=== PATIENT | female | born 1965 | race African-American/Black ===

== ENCOUNTER 2016-09-19 05:40 | Day surgery (SDC) | payer OTHER ==
--- NOTE | 2016-09-16 03:31 | PREOPHP ---
DATE OF ADMISSION: 09/19/2016 HISTORY OF PRESENT ILLNESS: This is a 51-year-old female, 1, para 1 with a history of havin g abnormal Pap smear, endometrial hyperplasia, old fibroid uterus, morbid obesity, and previous stro ke. This patient had a stroke in 2010. She had lung surgery, hypertension, pneumonia, and thoracot pam. She has been also diabetic. She has been on atorvastatin, Claritin, gabapentin, metformin, Pr otonix, lisinopril, and naproxen. This patient needed a cervical conization due to a HILARIA 2 on the b iopsy of the cervix. Since she needs D and C and hysteroscopy due to endometrial hyperplasia to rul e out malignancy, the patient was offered to have a hysteroscopy D and C and cervical conization all at the same time. The patient also is a chronic smoker. FAMILY HISTORY: Noncontributory. PHYSICAL EXAMINATION: VITAL SIGNS: The patient is 5 feet 7 inches, she weighs 293 pounds. Her blood pressure is 120/70, pulse is 80, respirations 16. Her last period was in 2013. HEAD AND NECK: Normal. CHEST: Clear. HEART: Normal sinus rhythm. LUNGS: Clear. ABDOMEN: Soft, nontender, no masses. PELVIC: The external genitalia is normal. The vagina is atrophic. Uterus with fibroids 8.7 cm by ultrasound. Endometrium is 9 mm, thick for a postmenopausal woman. The adnexa were not palpable. EXTREMITIES: Normal. DIAGNOSES: 1. Endometrial hyperplasia. 2. Old fibroid uterus. 3. Morbid obesity. 4. Previous stroke. 5. Previous lung surgery. 6. Chronic smoker. 7. Cervical intraepithelial neoplasia 2 of the cervix. 8. Hypertension. PLAN: She is undergoing a fractional D and C hysteroscopy and cervical conization of the cervix for further treatment and diagnosis. She has been advised of the possible risks and possible complicat ions of this procedure with her alternatives and options. Written information was provided, and she had no more questions and agreed to go ahead with the procedure with full understanding. Dictated By: SAMANTHA DIAZ/OZIEL Conf#: [id number] DID#: [id number]
[2016-09-18 09:49] VITALS: BMI 44.2
[~2016-09-19] VITALS: Ht 172.7 cm; Wt 132.0 kg
[2016-09-19] VITALS (19 sets, daily range): BP systolic 90–134; BP diastolic 47–73; PULSE 56–100; RESP 10–32; Ht 172.7 cm; Wt 132.0 kg
[2016-09-19] MEDS ORDERED: PANT40TA4 PO (07:39)
[2016-09-19] MEDS ORDERED: LORA10TA3 PO (07:39)
[2016-09-19] MEDS ORDERED: GABA100C14 PO (07:39)
[2016-09-19] MEDS ORDERED: ATOR20TA65 PO (07:39)
[2016-09-19] MEDS ORDERED: METF-385 PO (07:39)
[2016-09-19] MEDS ORDERED: LISI20TA11 PO (07:39)
[2016-09-19] MEDS ORDERED: ASPI-535 PO (07:41)
[2016-09-19] MEDS ORDERED: NOVMIX SC (07:41)
[2016-09-19] MEDS ORDERED: LANT3I SC (07:41)
--- NOTE | 2016-09-19 08:24 | RADRPT ---
PROCEDURE: XR Chest 1 View. CLINICAL INDICATION: Abnormal breath sounds, preop. TECHNIQUE: AP view of the chest were obtained. COMPARISON: None. FINDINGS: The cardiomediastinal silhouette is within normal limits. No consolidations are identified. No pneu mothorax is seen. Osseous structures are intact. IMPRESSION: No active disease. RPTAT: AA .Wilman Cervantes MD, Date Time Electronically viewed and signed by .Wilman Cervantes MD, on 09/19/2016 08:23 .P/
[2016-09-19] MEDS ORDERED: METOCLOPRAMIDE 10 MG INJ IV PRN (09:00)
[2016-09-19] MEDS ORDERED: MIDAZOLAM 1 MG/ML 2 ML INJ ONE (09:00)
[2016-09-19] MEDS ORDERED: LIDOCAINE 2% (SDV) 5 ML INJ ONE (09:00)
[2016-09-19] MEDS ORDERED: FENTAnyl 50 MCG/ML VIAL IV PRN (09:00)
[2016-09-19] MEDS ORDERED: PROPOFOL 20 ML ONE (09:00)
[2016-09-19] MEDS ORDERED: MEPERIDINE 25 MG INJ IV PRN (09:00)
[2016-09-19] MEDS ORDERED: HYDROmorphONE (0.2 MG/ML) 10ML SYG IV PRN ×2 (09:00)
[2016-09-19] MEDS ORDERED: INSULIN ASPART [NOVOLOG] 3 ML PEN SC ONE (09:00)
[2016-09-19] MEDS ORDERED: DIPHENHYDRAMINE 50 MG INJ IV PRN (09:00)
[2016-09-19] MEDS ORDERED: ONDANSETRON 4 MG INJ IV PRN (09:00)
[2016-09-19] MEDS ORDERED: FENTAnyl 50 MCG/ML VIAL ONE (09:00)
[2016-09-19] MEDS ORDERED: OXYCODONE/ACETAMINOPHEN (5/325) TAB PO PRN ×2 (09:00)
[2016-09-19] MEDS ORDERED: STRONG IODINE 14 ML SOLUTION TOP ONE (09:50)
[2016-09-19] MEDS ORDERED: ONDANSETRON 4 MG INJ ONE (10:11)
[2016-09-19] MEDS ORDERED: METOCLOPRAMIDE 10 MG INJ ONE (10:11)
[2016-09-19] MEDS ORDERED: ACETAMINOPHEN 1000MG/100ML IV 100 ML ONE (10:26)
[2016-09-19] MEDS ORDERED: KETOROLAC 30 MG INJ ONE (10:44)
--- NOTE | 2016-09-19 10:59 | OPPN ---
Date/Time of Note Date/Time of Note DATE: 09/19/16 TIME: 10:54 Operative/Procedure Note FRACTIONAL D&C HYSTEROSCOPY EXCISION OF ENDOMETRIAL POLYP CONIZATION OF CERVIX Pre-Operative Diagnosis ENDOMETRIAL HYPERPLASIA MORBID OBESITY DIABETES HILARIA 2 OF CERVIX BY HISTORY ABNORMAL PAP SMEAR Post-Operative Diagnosis SAME Surgeon: SAMANTHA PAZ MD Anesthesiologist: SARAH CHOU MD Estimated blood loss: none Specimens ENDOMETRIAL CONTENTS CERVICAL TISSUE Complications: None Anesthesia type: general SAMANTHA PAZ MD Sep 19, 2016 10:59
[2016-09-19] MEDS ORDERED: KETOROLAC 30 MG INJ IV PRN (11:00)
--- NOTE | 2016-09-19 11:02 | PD.PPDC ---
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
--- NOTE | 2016-09-19 11:08 | OPR ---
DATE OF OPERATION: 09/19/2016 PREOPERATIVE DIAGNOSES: Endometrial hyperplasia of fibroid uterus, morbid obesity, previous lung plunkett rgery, chronic smoker and HILARIA 2 of the cervix, hypertension, abnormal Pap smear. POSTOPERATIVE DIAGNOSIS: Endometrial hyperplasia, fibroid uterus, morbid obesity, previous lung oma yanely, chronic smoker and HILARIA 2 of the cervix, hypertension, abnormal Pap smear. OPERATION PERFORMED: Fractional D and C and hysteroscopy and cervical conization of the cervix. Pr ocedure under general anesthesia with Dr. Packer. SURGEON: Dr. Varela DESCRIPTION OF PROCEDURE: Patient was given general anesthesia, placed in the lithotomy position. The perineal and vaginal area were prepped and draped. Examination under anesthesia revealed that t he uterus was normal size. The vagina was atrophic. The cervix was nonprolapsed, a small cervix a nd adnexa were nonpalpable. The vaginal speculum was applied. The endocervical curettage was done. The uterus was sounded to a depth of 9 cm and dilated and the hysteroscope was placed inside and t he media was injected and a polyp was observed in the anterior wall of the uterus that was removed w ith the polyp forceps in pieces. The endometrial curettage was done and all this was sent for patho logy report. Now, at this time, the conization of the cervix was done with a small curet of ectocer vix and endocervix with no actual bleeding. The procedure was finished by removing all the instrume nts. The patient tolerated the procedure well and left the OR awake and stable. Sponge counts, ins trument counts were correct and intravenous antibiotics were given for prophylaxis. Dictated By: SAMANTHA DIAZ/OZIEL Conf#: [id number] DID#: [id number]
--- NOTE | 2016-09-19 11:40 | RADRPT ---
Vent Rate: 85 bpm RR Interval: 0 msec VT Interval: 140 msec QRS Duration: 84 msec QT Interval: 376 msec QTC Interval: 447 msec P-R-T [place]: 64 - 13 - 57 degrees Normal sinus rhythm with sinus arrhythmia Normal ECG Electronically Signed By: Yevgeniy Ochoa [id number]
== END 2016-09-19 13:10 | disposition home or self-care (01) ==
LOC: SDS 05:40
PROVIDERS: ATTEND Obstetrics & Gynecology
DX: N85.00 Endometrial hyperplasia, unspecified (principal); D25.9 Leiomyoma of uterus, unspecified; I10 Essential (primary) hypertension; E66.01 Morbid (severe) obesity due to excess calories; Z68.41 Body mass index [BMI] 40.0-44.9, adult; E11.8 Type 2 diabetes mellitus with unspecified complications; Z79.4 Long term (current) use of insulin
CPT/HCPCS: 58558; 71010; 82962; 88305; 93005; J0131; J1815; J1885; J2250; J2405; J2765; J3010; Z7512; Z7610

== ENCOUNTER 2017-01-02 05:34 | Inpatient (IN) | payer OTHER ==
[2017-01-01 09:43] VITALS: BMI 45.2
[2017-01-02] VITALS (55 sets, daily range): BP systolic 98–200; BP diastolic 46–112; PULSE 94–123; RESP 14–32; Ht 167.6 cm; Wt 130.6 kg
[~2017-01-02] VITALS: Ht 167.6 cm; Wt 130.6 kg
[~2017-01-02 05:34] MED LIST: ASPI-535 PO; ATOR20TA65 PO; CEFAZOLIN 2 GM/50 ML (PMX) 50 ML IVPB ONE; D5-NS + KCL 20 MEQ 1,000 ML IV SCH; GABA100C14 PO; LANT3I SC; LISI20TA11 PO; LORA10TA3 PO; METF850T PO; Metronidazole 500 MG in NS 100 ML IVPB ONE; NOVMIX SC; PANT40TA4 PO
[2017-01-02] MEDS ORDERED: INSULIN LISPRO 100 UNIT/ML VIAL SC ONE (06:12)
[2017-01-02] MEDS ORDERED: THROMBIN 5000 UNIT VIAL ONE (06:55)
[2017-01-02] MEDS ORDERED: GELATIN SIZE 100 SPONGE ONE (06:55)
[2017-01-02] MEDS ORDERED: VASOPRESSIN 20 UNITS INJ ONE (06:56)
[2017-01-02] MEDS ORDERED: METHYLENE BLUE 1% 10 ML INJ ONE (06:56)
[2017-01-02] MEDS ORDERED: CEFAZOLIN 1 GM INJ ONE ×2 (07:00→12:52)
[2017-01-02] MEDS ORDERED: SUCCINYLCHOLINE CHLORIDE 100 MG/5 ML SYG IV ONE (07:00)
[2017-01-02] MEDS ORDERED: ACETAMINOPHEN 1000 MG/100 ML IVPB ONE (07:00)
[2017-01-02] MEDS ORDERED: ROCURONIUM 50 MG INJ ONE ×3 (07:19→12:19)
[2017-01-02] MEDS ORDERED: PROPOFOL 100 ML ONE (07:19)
[2017-01-02] MEDS ORDERED: MIDAZOLAM 1 MG/ML 2 ML INJ ONE (07:20)
[2017-01-02] MEDS ORDERED: FENTAnyl 50 MCG/ML VIAL ONE (07:20)
[2017-01-02] MEDS ORDERED: morphine SULFATE/PF (10 MG/10 ML) INJ ONE (07:20)
--- NOTE | 2017-01-02 08:31 | HPN ---
Date/Time of Note Date/Time of Note DATE: 01/02/17 TIME: 08:31 Interval H&P Admission Note Pt. seen H&P reviewed: No system changes RACHELL CHAUHAN MD Jan 02, 2017 08:31
--- NOTE | 2017-01-02 08:41 | HP ---
Date/Time of Note Date/Time of Note DATE: 01/02/17 TIME: 08:34 Assessment/Plan VTE Prophylaxis VTE Prophylaxis Intervention: SCD's Lines/Catheters IV [facility] Saline Lock HPI/ROS Admit Date/Time Admit Date/Time Jan 02, 2017 at 05:34 Hx of Present Illness Emory Hyde M.D. [facility] History and Physical Examination Renée Moore January 01, 2017 Age:51 :1965 Physicians: Gum Rolling Machine Tender:Dr. Varela Hvac Mechanic: History of the Present Illness: This is a 51 year old female with abnormal and Pap Smear and HSIL found on Endocervix Cone BIopsy with Gland Duct Involement with equivalent finding on ECC and EMB. Past Medical History: Surgical: CS, LEEP Medical: DM, HTN Medications: 11/08/16 atorvastatin 20 mg tablet 1 tablet by mouth DAILY 11/08/16 gabapentin 100 mg capsule 1 capsule by mouth TID 11/08/16 lisinopril 20 mg tablet 1 tablet by mouth DAILY 11/08/16 loratadine 10 mg tablet 1 tablet by mouth DAILY 11/08/16 metformin 850 mg tablet 1 tablet by mouth TID 11/08/16 Novolog Mix 70-30 FlexPen 100 unit/mL subcutaneous pen 1 unit inject below the skin DAILY 11/08/16 pantoprazole 40 mg tablet,delayed release 1 tablet by mouth DAILY Flu yes, -2015, Pneumococcal yes, 2015 Allergies: No active allergies recorded Family History: Noncontributory Social History: Noncontributory Colonoscopy: never Review of Systems: Negative except for above noted Physical Examination Vitals (11/08/2016): Weight 291, Height 66.5, BP 140/80, BMI 47.0. General: Alert. HEENT: Pupils are equal, round, reactive to light and accommodation. Neck: Supple with no masses of lymphadenopathy. Breast: Deferred due to recent examination and responsibility of primary care physician. Chest: Clear to auscultation and percussion with no rales, ronchi, or wheeze. Heart: Normal rhythm with no murmur. Abdomen: no masses nor organomeglay, quite obese Pelvis: Cervix somewhat flush with vagina, no gross mass and uterus enlarged and globular, no parametrial involvement or masses Rectal: confirmatory with pelvic exam. Neurological: Grossly intact Assessment: HILARIA III with + margins r/o invasion Plan: Laparoscopic type 2 hyst BSO sentinel LND. All risks and benefits of this procedure have been discussed in detail with the patient, as well as alternative treatment strategies and their implications. The patient is aware that there is some possibility of a blood transfusion and its associated risks and benefits. She wishes to proceed and gives her informed consent. Emory Hyde M.D. H/Family/Social Social History Smoking Status: Current every day smoker Exam/Review of Systems Vital Signs Vitals Vital Signs Date Time Temp Pulse Resp B/P Pulse Ox O2 Delivery O2 Flow Rate FiO2 01/02/17 06:20 98.1 106 16 127/77 94 Room Air Medications Medications Current Medications Potassium Chloride/Dextrose/ Sod Cl (D5-NS + KCl 20 Meq) 1,000 ml @ 100 mls/hr Q10H IV ; Start 01/02/17 at 05:30; Stop 01/02/17 at 23:00 EMORY HYDE MD Jan 02, 2017 08:41
[2017-01-02] MEDS ORDERED: PHENYLephrine (100 MCG/ML) 5ML SYG ONE (08:57)
[2017-01-02] MEDS ORDERED: ROPIVACAINE 0.2% 20 ML VIAL ONE ×2 (08:57→10:10)
[2017-01-02] MEDS ORDERED: METOCLOPRAMIDE 10 MG INJ ONE (10:29)
[2017-01-02] MEDS ORDERED: ONDANSETRON 4 MG INJ ONE (10:29)
[2017-01-02] MEDS ORDERED: NEOSTIGMINE 3 MG/3 ML SYRINGE ONE (13:03)
[2017-01-02] MEDS ORDERED: GLYCOPYRROLATE 0.4 MG INJ ONE (13:03)
[2017-01-02] MEDS ORDERED: D5-LR + KCL 20 MEQ 1,000 ML IV SCH (13:30)
[2017-01-02] MEDS ORDERED: metroNIDAZOLE 500 MG/NS (PMX) 100 ML IVPB SCH (13:30)
[2017-01-02] MEDS ORDERED: ONDANSETRON 4 MG INJ IV PRN ×2 (13:30→14:00)
[2017-01-02] MEDS ORDERED: CEFAZOLIN 3 GM in SOD CHLORIDE 0.9% 100 ML IVPB SCH (13:30)
[2017-01-02] MEDS ORDERED: morphine 2 MG INJ IV PRN ×2 (13:30→14:00)
[2017-01-02] MEDS ORDERED: hydrALAzine 20 MG INJ ONE (13:33)
[2017-01-02] MEDS ORDERED: MEPERIDINE 25 MG INJ IV PRN (14:00)
[2017-01-02] MEDS ORDERED: NALOXONE (0.4 MG/ML) INJ IV PRN (14:00)
[2017-01-02] MEDS ORDERED: HYDROmorphONE 1 MG/ML SYG IV PRN ×2 (14:00)
[2017-01-02] MEDS ORDERED: hydrALAzine 20 MG INJ IV PRN (14:00)
[2017-01-02] MEDS ORDERED: EPHEDrine SULFATE 50 MG/5 ML SYG IV PRN (14:00)
[2017-01-02] MEDS ORDERED: DIPHENHYDRAMINE 50 MG INJ IV PRN ×2 (14:00)
[2017-01-02] MEDS ORDERED: morphine 4 MG/ML VIAL IV PRN (14:00)
[2017-01-02] MEDS ORDERED: NALBUPHINE HCL (10 MG/1 ML) INJ IV PRN (14:00)
[2017-01-02] MEDS ORDERED: METOCLOPRAMIDE 10 MG INJ IV PRN (14:00)
[2017-01-02] MEDS ORDERED: LABETALOL HCL 20MG INJ IV PRN (14:00)
[2017-01-02] MEDS ORDERED: TRIMETHOBENZAMIDE 100 MG/ML VIAL IM PRN (14:00)
[2017-01-02] MEDS ORDERED: INSULIN REGULAR 10 ML INJ SC ONE ×2 (14:30)
[2017-01-02 15:33] LABS: ADD SCAN DIFF NO
[2017-01-02 15:34] LABS: BASOPHILS % 0.2 % (0.0-2.0); EOSINOPHILS % 0.1 % (0.0-7.0); HEMATOCRIT 42.5 % (37.0-47.0); HEMOGLOBIN 13.5 g/dl (12.0-16.0); LYMPHOCYTES # 1.7 10^3/ul (0.8-2.9); LYMPHOCYTES % 9.3 % (15.0-51.0); MEAN CORPUSCULAR HEMOGLOBIN 32.1 pg (29.0-33.0); MEAN CORPUSCULAR HGB CONC 31.8 g/dl (32.0-37.0); MEAN CORPUSCULAR VOLUME 101.2 fl (82.0-101.0); MEAN PLATELET VOLUME 11.2 fl (7.4-10.4); MONOCYTE # 0.7 10^3/ul (0.3-0.9); NEUTROPHIL # 15.5 10^3/ul (1.6-7.5); PLATELET COUNT 229 10^3/UL (140-415); RED CELL DISTRIBUTION WIDTH 13.3 % (11.5-14.5)
[2017-01-02 16:03] LABS: CALCIUM 8.5 mg/dl (8.4-10.2); CREATININE 0.78 mg/dl (0.44-1.00); POTASSIUM 4.2 mmol/L (3.5-5.1)
[2017-01-02] MEDS ORDERED: DEXTROSE 50% 50 ML SYRINGE IV PRN ×2 (17:00)
[2017-01-02] MEDS ORDERED: GLUCOSE GEL 15 GRAM TUBE PO PRN ×2 (17:00)
[2017-01-02] MEDS ORDERED: GLUCAGON 1 MG INJ IM PRN (17:00)
[2017-01-02] MEDS ORDERED: GLUCOSE GEL 15 GRAM TUBE BUCCAL PRN (17:00)
--- NOTE | 2017-01-02 17:04 | CONS ---
DATE OF ADMISSION: 01/02/2017 DATE OF CONSULTATION: 01/02/2017 HISTORY OF PRESENT ILLNESS: The patient was seen, medical record reviewed. The patient is a 51-ye ar-old female with history of hypertension, diabetes, and dyslipidemia. The patient is also status post endocervical cone biopsy and endometrial biopsy in 09/[address] Varela, and the cervical co ne biopsy was positive for high-grade squamous intraepithelial lesion with gland duct involvement. Endometrial curettage was also positive for high-grade squamous intraepithelial lesion and endocervi lindsey curettings were also positive. The patient was seen by Dr. Hyde as an outpatient and underw ent laparoscopic modified radical hysterectomy and node dissection. The patient postoperatively has elevated blood sugar and received NovoLog insulin. The patient reported that she has been taking L antus and NovoLog in addition to metformin at home and her last Lantus dose was yesterday night. Th e patient denied any chest pain. Denies any shortness of breath. Remains awake, alert. No reporte d vomiting. No reported weakness or paresthesias in any extremity. No reported recent fever or chi lls. No reported recent urinary or respiratory tract infection. PAST SURGICAL HISTORY: Significant for and surgery on left lung for complication of pneum onia. SOCIAL HISTORY: The patient occasionally smokes. No alcohol abuse. FAMILY HISTORY: Noncontributory. PHYSICAL EXAMINATION: GENERAL: The patient is conscious, awake, alert. VITAL SIGNS: Temperature 97.5, pulse 114, respirations 20, blood pressure 164/72, O2 saturation 98% on 4 liters nasal cannula. HEENT: Conjunctivae and lids are normal. Oropharynx clear. NECK: No mass. CHEST: Clear. CARDIOVASCULAR: S1, S2 normal. No murmur. ABDOMEN: Abdominal examination was deferred due to recent surgery. EXTREMITIES: No leg edema. Pedal pulses palpable. SKIN: Without rash. NEUROLOGIC: The patient is awake, alert. LABORATORY DATA: WBC 18, hemoglobin 13.5, platelets 229. Chemistry: Sodium 137, potassium 4.2, BU N 11, creatinine 0.7, glucose 279. IMPRESSION: 1. High-grade squamous intraepithelial lesion on cone biopsy, endometrial curetting and endocervica l curetting. Status post laparoscopic hysterectomy and node dissection. 2. Diabetes. 3. Hypertension. 4. Obesity. 5. Dyslipidemia. PLAN: The patient is admitted on medical floor. The patient will be continued on aspirin, Lipitor, gabapentin, insulin, lisinopril, metformin, and Protonix. We will continue postop care as per Dr. Hyde. The patient will be started on clear liquid diet for now. We will use SCDs for DVT proph ylaxis and patient has already been started on IV Pepcid. We will hold off on oral Protonix, which she was taking prior to admission. Dictated By: HUEY BROUSSARD/NTS Conf#: [id number] DID#: [id number]
[2017-01-02] MEDS ORDERED: [UNRECOGNIZED DRUG - REMARK] SC SCH (18:00)
[2017-01-02] MEDS: metFORMIN 850 MG TAB PO SCH (18:52)
[2017-01-02] MEDS: metroNIDAZOLE 500 MG/NS (PMX) 100 ML IVPB SCH (18:52)
[2017-01-02] MEDS: INSULIN ASPART [NOVOLOG] 3 ML PEN SC SCH ×3 (20:58→21:00)
[2017-01-02] MEDS: GABAPENTIN 100 MG CAP PO SCH (21:00)
[2017-01-02] MEDS: ALBUTEROL/IPRATROPIUM (NEB) 3 ML AMP HHN SCH (22:18)
[2017-01-02] MEDS: CEFAZOLIN 3 GM in SOD CHLORIDE 0.9% 100 ML IVPB SCH (22:27)
[2017-01-02] MEDS: FAMOTIDINE 20 MG INJ IV SCH (22:31)
[2017-01-02] MEDS: POTASSIUM CHLORIDE 20 MEQ in LACTATED RINGER'S 1,000 ML IV SCH (22:32)
[2017-01-03 00:24] VITALS: BP 127/63; RESP 20
[2017-01-03] MEDS: ACCU-CHEK XX SCH (02:07)
[2017-01-03] MEDS: ALBUTEROL/IPRATROPIUM (NEB) 3 ML AMP HHN SCH ×4 (02:20→19:28)
[2017-01-03] MEDS: metroNIDAZOLE 500 MG/NS (PMX) 100 ML IVPB SCH ×2 (03:13→10:35)
[2017-01-03 05:12] LABS: ADD SCAN DIFF NO
[2017-01-03 05:15] LABS: BASOPHILS % 0.3 % (0.0-2.0); EOSINOPHILS % 0.1 % (0.0-7.0); HEMATOCRIT 42.8 % (37.0-47.0); HEMOGLOBIN 12.7 g/dl (12.0-16.0); LYMPHOCYTES # 1.8 10^3/ul (0.8-2.9); LYMPHOCYTES % 16.5 % (15.0-51.0); MEAN CORPUSCULAR HEMOGLOBIN 30.9 pg (29.0-33.0); MEAN CORPUSCULAR HGB CONC 29.7 g/dl (32.0-37.0); MEAN CORPUSCULAR VOLUME 104.1 fl (82.0-101.0); MEAN PLATELET VOLUME 11.6 fl (7.4-10.4); MONOCYTE # 0.6 10^3/ul (0.3-0.9); MONOCYTES % 5.5 % (0.0-11.0); NEUTROPHIL # 8.5 10^3/ul (1.6-7.5); NEUTROPHILS % 77.3 % (39.0-77.0); PLATELET COUNT 201 10^3/UL (140-415); RED BLOOD COUNT 4.11 10^6/ul (4.20-5.40); RED CELL DISTRIBUTION WIDTH 13.5 % (11.5-14.5)
[2017-01-03 05:26] LABS: INR 1.02; PROTIME 13.4 Sec (12.2-14.2)
[2017-01-03 05:33] LABS: POTASSIUM 4.8 mmol/L (3.5-5.1)
[2017-01-03 05:36] LABS: CREATININE 0.8 mg/dl (0.44-1.00)
[2017-01-03 05:37] LABS: CALCIUM 8.1 mg/dl (8.4-10.2)
[2017-01-03] MEDS: CEFAZOLIN 3 GM in SOD CHLORIDE 0.9% 100 ML IVPB SCH ×2 (05:53→13:28)
--- NOTE | 2017-01-03 08:28 | OPPN ---
Date/Time of Note Date/Time of Note DATE: 01/03/17 TIME: 08:28 Post-Anesthesia Notes Post-Anesthesia Note Last documented vital signs Vital Signs Date Time Temp Pulse Resp B/P Pulse Ox O2 Delivery O2 Flow Rate FiO2 01/03/17 08:05 5.0 01/03/17 08:01 102 20 95 Nasal Cannula 01/03/17 00:24 99.1 127/63 Activity: WNL Respiratory function: WNL Cardiovascular function: WNL Mental status: Baseline Pain reasonably controlled: Yes Hydration appropriate: Yes Nausea/Vomiting absent: Yes ADAM MOELLER MD Jan 03, 2017 08:28
[2017-01-03 08:45] VITALS: BP 140/64; RESP 18
[2017-01-03] MEDS: ATORVASTATIN 20 MG TAB PO SCH (09:31)
[2017-01-03] MEDS: LISINOPRIL 20 MG TAB PO SCH (09:31)
[2017-01-03] MEDS: GABAPENTIN 100 MG CAP PO SCH ×3 (09:31→21:02)
[2017-01-03] MEDS: metFORMIN 850 MG TAB PO SCH ×3 (09:31→17:53)
[2017-01-03] MEDS: FAMOTIDINE 20 MG INJ IV SCH ×2 (09:31→21:02)
[2017-01-03] MEDS: ASPIRIN (EC) 81 MG TAB PO SCH (09:31)
[2017-01-03] MEDS: INSULIN GLARGINE [LANtus] 3 ML PEN SC SCH (09:32)
[2017-01-03] MEDS: INSULIN ASPART [NOVOLOG] 3 ML PEN SC SCH ×7 (09:34→21:06)
[2017-01-03] MEDS: POTASSIUM CHLORIDE 20 MEQ in LACTATED RINGER'S 1,000 ML IV SCH ×2 (15:10→18:12)
--- NOTE | 2017-01-03 19:26 | PN ---
Date/Time of Note Date/Time of Note DATE: 01/03/17 TIME: 19:22 Assessment/Plan VTE Prophylaxis VTE Prophylaxis Intervention: other Lines/Catheters IV Catheter Type (from Nrsg): Peripheral IV Urinary Cath still in place: Yes Reason Cath still needed: urinary retention Assessment/Plan Assessment/Plan 1. 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 Status post laparoscopic hysterectomy and node dissection. - per Dr. Hyde in surgery - clear liquid diet, advance per surgery - reinforce incentive spirometer 2. Diabetes- glycemic control 3. Hypertension. 4. Obesity. - weight management - dietary consult 5. Dyslipidemia. -SCDs for DVT prophylaxis, Pepcid for GI prophylaxis sadaf Meredith Subjective 24 Hr Interval Summary Free Text/Dictation c/o post op pain. Denies any chest pain, remains afebrile. dw staff Gastrointestinal: pain Exam/Review of Systems Vital Signs Vitals Vital Signs Date Time Temp Pulse Resp B/P Pulse Ox O2 Delivery O2 Flow Rate FiO2 01/03/17 14:48 5.0 01/03/17 14:47 106 20 96 Nasal Cannula 01/03/17 08:45 97.9 140/64 Intake and Output 01/02/17 01/02/17 01/03/17 14:59 22:59 06:59 Intake Total 2400 ml 100 ml 1450 ml Output Total 350 ml 900 ml Balance 2050 ml 100 ml 550 ml Exam Constitutional: alert, obese, oriented Psych: nl mood/affect Head: atraumatic Eyes: EOMI, nl sclera ENMT: nl external ears & nose Neck: non-tender Respiratory: clear to auscultation Cardiovascular: nl pulses Gastrointestinal: non-tender, soft Musculoskeletal: nl extremities to inspection Extremities: normal pulses Neurological: nl mental status, nl speech Lymph: nontender Results Result Diagram: 01/03/174 01/03/174 Results 24 hrs Laboratory Tests Test 01/02/17 20:26 01/03/17 02:06 01/03/17 04:44 01/03/17 08:03 Bedside Glucose 240 H 213 262 H White Blood Count 11.0 #H Red Blood Count 4.11 L Hemoglobin 12.7 Hematocrit 42.8 Mean Corpuscular Volume 104.1 H Mean Corpuscular Hemoglobin 30.9 Mean Corpuscular Hemoglobin Concent 29.7 L Red Cell Distribution Width 13.5 Platelet Count 201 Mean Platelet Volume 11.6 H Neutrophils % 77.3 H Lymphocytes % 16.5 Monocytes % 5.5 Eosinophils % 0.1 Basophils % 0.3 Nucleated Red Blood Cells % 0.0 Neutrophils # 8.5 H Lymphocytes # 1.8 Monocytes # 0.6 Eosinophils # 0.0 Basophils # 0.0 Nucleated Red Blood Cells # 0.0 Prothrombin Time 13.4 Prothrombin Time Ratio 1.0 INR International Normalized Ratio 1.02 Sodium Level 137 Potassium Level 4.8 Chloride Level 100 Carbon Dioxide Level 29 Anion Gap 13 Blood Urea Nitrogen 11 Creatinine 0.80 Glucose Level 253 H Calcium Level 8.1 L Test 01/03/17 12:49 01/03/17 17:27 Bedside Glucose 212 198 Medications Medications Current Medications Diphenhydramine HCl (Benadryl) 25 mg Q4H PRN IV PRURITUS; Start 01/02/17 at 14: 00 Nalbuphine HCl (Nubain) 10 mg Q4H PRN IV PRURITUS; Start 01/02/17 at 14:00 Naloxone HCl (Narcan) 0.2 mg Q2M PRN IV FOR RESP RATE 8 OR LESS; Start at 14:00 Morphine Sulfate (morphine) 2 mg Q2H PRN IV PAIN LEVEL 6-10 Last administered on 01/03/17 18:23; Admin Dose 2 MG; Start 01/02/17 at 13:30 Acetaminophen/ Hydrocodone Bitart ([place] (5/325)) 1 tab Q6H PRN PO PAIN LEVEL 6 -10; Start 01/02/17 at 13:30 Ketorolac Tromethamine (Toradol) 30 mg Q6H PRN IV PAIN; Start 01/02/17 at 13:30 ; Stop 01/05/17 at 13:29 Ondansetron HCl (Zofran Inj) 4 mg Q6H PRN IV NAUSEA AND/OR VOMITING; Start at 13:30 Famotidine (Pepcid Iv) 20 mg Q12 IV Last administered on 01/03/17 09:31; Admin Dose 20 MG; Start 01/02/17 at 21:00 Aspirin (Halfprin) 81 mg DAILY PO Last administered on 01/03/17 09:31; Admin Dose 81 MG; Start 01/03/17 at 09:00 Atorvastatin Calcium (Lipitor) 20 mg DAILY PO Last administered on 01/03/17 09 :31; Admin Dose 20 MG; Start 01/03/17 at 09:00 Gabapentin (Neurontin) 100 mg TID PO Last administered on 01/03/17 13:27; Admin Dose 100 MG; Start 01/02/17 at 21:00 Lisinopril (Zestril) 20 mg DAILY PO Last administered on 01/03/17 09:31; Admin Dose 20 MG; Start 01/03/17 at 09:00 Insulin Glargine (Lantus) 30 unit DAILY@08 SC Last administered on 01/03/17 09 :32; Admin Dose 30 UNIT; Start 01/03/17 at 08:00 Diagnostic Test (Pha) (Accu-Chek) 1 ea 02 XX Last administered on 01/03/17 02: 07; Admin Dose 1 EA; Start 01/03/17 at 02:00 Miscellaneous Information 1 ea NOTE XX ; Start 01/02/17 at 17:00 Glucose (Glutose) 15 gm Q15M PRN PO DECREASED GLUCOSE; Start 01/02/17 at 17:00 Glucose (Glutose) 22.5 gm Q15M PRN PO DECREASED GLUCOSE; Start 01/02/17 at 17: 00 Dextrose (D50w Syringe) 25 ml Q15M PRN IV DECREASED GLUCOSE; Start 01/02/17 at 17:00 Dextrose (D50w Syringe) 50 ml Q15M PRN IV DECREASED GLUCOSE; Start 01/02/17 at 17:00 Glucagon (Glucagen) 1 mg Q15M PRN IM DECREASED GLUCOSE; Start 01/02/17 at 17:00 Glucose 15 gm 15 gm Q15M PRN BUCCAL DECREASED GLUCOSE; Start 01/02/17 at 17:00 Potassium Chloride/Lactated Ringer's (KCl/Lr) 1,010 ml @ 100 mls/hr Q10H6M IV Last administered on 01/03/17 15:10; Admin Dose 100 MLS/HR; Start 01/02/17 at 22:00 MARGIE BARNETT Jan 03, 2017 19:26
[2017-01-03 19:40] VITALS: BP 116/59; RESP 18
--- NOTE | 2017-01-03 20:09 | OPR ---
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 Laparoscopic Type 2 Hysterectomy / Bilateral salpingoophorectomy 2. 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 Right ureteral dissection with repositioning 4. [place]/selective pelvic lymph node dissection Surgeon: Dr. Hyde Director Television News: Dr. 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 Hence after considering all options with risks and benefits the Laparoscopic Type 2 Hysterectomy with Bilateral salpingoophorectomy with sentinel/selective LND was selected. Summary of Procedure: The patient was laparoscoped with the finding of some adhesions with morbid obesity and the adnexia densely adherent to the sidewalls with a separate right retroperitoneal mass. The Laparoscopic Type 2 Hysterectomy with Bilateral salpingoophorectomy with sentinel/selective LND was completed with negative findings on frozen section and the Name: Renée Moore Medical aforementioned right retroperitoneal mass was removed and most consistent with a lipoma or liposarcoma and required a ureteral dissection with repositioning in the process. . Findings and Procedure: After being prepped and draped in the usual manner a EEA sizer and pneumo- occluder was inserted vaginally after which a 5 millimeter trocar was placed cephlad to the umbilicus without incident. Subsequently, we insufflated and placed two 12 millimeter trocars laterally and a 12 millimeter trocar suprapubically and then changed all three to bariatric, after which extensive anterior omental adhesions were lysed with the Omni and Thunderbeat. At this time an additional 5-millimeter trocar was placed periumbilically and the 0-degree 5-millimeter laparoscopic was secured and manipulated with a Scope manipulator and any pelvic adhesions were lysed with sharp dissection. The uterus was manipulated with a previously placed EEA sizer. There was no apparent extra-uterine disease. A baby-lap was placed and a ratcheted endo-grasper was inserted via the suprapubic trocar and used to manipulate the uterus while being secured with a Vishal-arm, after which the right round ligament was transected with a Thunderbeat. The bladder flap was then developed with a Gyrus bipolar cutting forceps instrument as well as Omni and blunt dissection. The retroperitoneal area was opened with the Omni parallel to the IP-ligament and the ureter was identified and displaced distally due to a 3-5cm retroperitoneal lipomatous mass. Due to both scarring and inflammation from the prior procedure and the and the aforementioned mass as well as the need to isolate the uterine artery the ureter was dissected with the Omni and lateralized, after which normal peristalsis was observed. Of note, the aforementioned inflammation as well as adnexia adherent to the sidewall and possible liposarcoma necessitated that the ureteral dissection with repositioning being more extensive than anticipated but this was completed without incident with the Omni and endo- dissector and the integrity of the bladder was confirmed by instillation of methylene blue. Subsequently the mass was dissected from the adjacent bladder and vasculature with the Omni and in the process mobilized. After repositioning the ureter laterally away Name: [facility] from the peritoneum, the efe-rectal and efe-vessicle space was developed bluntly, after which a space was applied to the right broad ligament and the right IP-ligament was cauterized and transected with the Thunderbeat and Omni. We then repositioned the uterus with the ratcheted endo-grasper and with a Vishal arm. With both the aforementioned ureter identified and traced out the uterine vessels were thoroughly dissected separately identified, clipped multiple areas, and cut. The ureter was then tunneled through the parametria with an endo dissector, and the parametrial pedicle cauterized remote from the ureters and transected with the Thunderbeat. An identical procedure was used to transect the uterosacral ligaments an appropriate distance from the cervix with the Omni and Thunderbeat. Any bleeding areas were addressed with additional cautery using the the Omni. The bladder pillar was then dissected and clipped and desiccated and transected, after which the ureters was confirmed to be undamaged. At this time the uterine positioning adjusted with the ratcheted endo-grasper and secured with the lower Vishal-arm and the contralateral retroperitoneal area opened with the Omni and the adjacent round ligament cauterized and transected with the Gyrus bipolar cutting forceps. The retroperitoneal space was opened with the Omni and extended. The retroperitoneal area was further opened with the Omni parallel to the IP- ligament and the ureter was identified. Due to similar scarring and inflammation from the prior procedure as noted contralaterally with hypervascularity as well as uterine enlargement and the need to isolate the uterine artery the ureter was dissected with the Omni and lateralized, after which normal peristalsis was observed. Of note, the aforementioned inflammation as well as adnexia adherent to the sidewall necessitated that the ureteral dissection with repositioning be more extensive than anticipated but this was completed without incident. After repositioning the ureter laterally away from the peritoneum, the efe-rectal and efe-vessicle space was developed bluntly, after which a space was applied to the left broad ligament and the left IP-ligament was cauterized and transected with the Thunderbeat. We then repositioned the uterus with the ratcheted endo-grasper with a Vishal Arm retractor. With both the aforementioned ureter identified and traced out the left uterine vessels were thoroughly dissected separately identified, clipped multiple areas, and cut. The ureter was then tunneled through the parametria with an endo dissector, and the Name: [facility] parametrial pedicle cauterized remote from the ureters and transected with the Omni and Thunderbeat. An identical procedure was used to transect the uterosacral ligaments an appropriate distance from the with the Omni. Any bleeding areas were addressed with additional cautery using the Omni. The bladder pillar was then dissected and clipped and desiccated and transected as done contralaterally, after which the ureters was confirmed to be undamaged. Subsequently, additional paravaginal tissue was transected with the Omni and the uterus and cervix from the vagina by using a Thunderbeat and Omni along the edge of the EEA sizer. Colpotomies were made posterior and anterior and extended. The uterus was removed from below and the vagina closed with interrupted figure of eight sutures using and continuous 2-0 strata-fix suture placed through a separate RLQ 5-millimeter trocar due to the morbid obesity and the instruments being inadequate to reach. After confirming hemostasis a fan retractor was placed and secured with the Vishal Arm retractor on the right and a StorJiglu scope-tatum was used to secure the laparoscope and adjusted as needed after which the nodes noted to be in the hypogastric area and obturator area on the right retroperitoneal area were dissected with the Omni and Gyrus bipolar cutting forceps for hemostasis and lymphostasis. The dissection included the use of the instruments for traction and counter traction and the obturator nerve was identified in the process. Subsequently exposure was modified and nodes noted to be equivalent on the left retroperitoneal area were dissected with the Omni and Gyrus bipolar cutting forceps for hemostasis and lymphostasis similar to contralaterally with technique. The dissection included the use of the instruments for traction and counter traction and the obturator nerve was identified in the process. After irrigating and assuring hemostasis all 12-millimeter trocar fascia were removed and the fascia was closed with 0-vicryl using with endo-close devise. The gas was removed and the skin of all sites then closed with 4-0 Monocryl suture. The EBL was 75 ml and the patient tolerated the procedure well and left the OR in good condition. Rachell Hyde M.D. RACHELL HYDE MD Jan 03, 2017 20:09
--- NOTE | 2017-01-03 20:14 | PN ---
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 Subjective 24 Hr Interval Summary Free Text/Dictation + flatus and pain controlled. Minimally OOB. Exam/Review of Systems Vital Signs Vitals Vital Signs Date Time Temp Pulse Resp B/P Pulse Ox O2 Delivery O2 Flow Rate FiO2 01/03/17 19:40 97.6 108 18 116/59 98 01/03/17 19:28 Nasal Cannula 5.0 Intake and Output 01/02/17 01/02/17 01/03/17 15:00 23:00 07:00 Intake Total 2400 ml 100 ml 1450 ml Output Total 350 ml 900 ml Balance 2050 ml 100 ml 550 ml Exam Respiratory: clear to auscultation, normal air movement Cardiovascular: regular rate and rhythm Gastrointestinal: non-tender, soft Extremities: edema, No calf tenderness, No clubbing, No cyanosis, No normal pulses, No other, No palpable cord, No pitting pedal edema, No tenderness Results Result Diagram: 01/03/17 0444 01/03/17 0444 Results 24 hrs Laboratory Tests Test 01/02/17 20:26 01/03/17 02:06 01/03/17 04:44 01/03/17 08:03 Bedside Glucose 240 H 213 262 H White Blood Count 11.0 #H Red Blood Count 4.11 L Hemoglobin 12.7 Hematocrit 42.8 Mean Corpuscular Volume 104.1 H Mean Corpuscular Hemoglobin 30.9 Mean Corpuscular Hemoglobin Concent 29.7 L Red Cell Distribution Width 13.5 Platelet Count 201 Mean Platelet Volume 11.6 H Neutrophils % 77.3 H Lymphocytes % 16.5 Monocytes % 5.5 Eosinophils % 0.1 Basophils % 0.3 Nucleated Red Blood Cells % 0.0 Neutrophils # 8.5 H Lymphocytes # 1.8 Monocytes # 0.6 Eosinophils # 0.0 Basophils # 0.0 Nucleated Red Blood Cells # 0.0 Prothrombin Time 13.4 Prothrombin Time Ratio 1.0 INR International Normalized Ratio 1.02 Sodium Level 137 Potassium Level 4.8 Chloride Level 100 Carbon Dioxide Level 29 Anion Gap 13 Blood Urea Nitrogen 11 Creatinine 0.80 Glucose Level 253 H Calcium Level 8.1 L Test 01/03/17 12:49 01/03/17 17:27 Bedside Glucose 212 198 Medications Medications Current Medications Diphenhydramine HCl (Benadryl) 25 mg Q4H PRN IV PRURITUS; Start 01/02/17 at 14: 00 Nalbuphine HCl (Nubain) 10 mg Q4H PRN IV PRURITUS; Start 01/02/17 at 14:00 Naloxone HCl (Narcan) 0.2 mg Q2M PRN IV FOR RESP RATE 8 OR LESS; Start at 14:00 Morphine Sulfate (morphine) 2 mg Q2H PRN IV PAIN LEVEL 6-10 Last administered on 01/03/17 18:23; Admin Dose 2 MG; Start 01/02/17 at 13:30 Acetaminophen/ Hydrocodone Bitart ([place] (5/325)) 1 tab Q6H PRN PO PAIN LEVEL 6 -10; Start 01/02/17 at 13:30 Ketorolac Tromethamine (Toradol) 30 mg Q6H PRN IV PAIN; Start 01/02/17 at 13:30 ; Stop 01/05/17 at 13:29 Ondansetron HCl (Zofran Inj) 4 mg Q6H PRN IV NAUSEA AND/OR VOMITING; Start at 13:30 Famotidine (Pepcid Iv) 20 mg Q12 IV Last administered on 01/03/17 09:31; Admin Dose 20 MG; Start 01/02/17 at 21:00 Aspirin (Halfprin) 81 mg DAILY PO Last administered on 01/03/17 09:31; Admin Dose 81 MG; Start 01/03/17 at 09:00 Atorvastatin Calcium (Lipitor) 20 mg DAILY PO Last administered on 01/03/17 09 :31; Admin Dose 20 MG; Start 01/03/17 at 09:00 Gabapentin (Neurontin) 100 mg TID PO Last administered on 01/03/17 13:27; Admin Dose 100 MG; Start 01/02/17 at 21:00 Lisinopril (Zestril) 20 mg DAILY PO Last administered on 01/03/17 09:31; Admin Dose 20 MG; Start 01/03/17 at 09:00 Insulin Glargine (Lantus) 30 unit DAILY@08 SC Last administered on 01/03/17 09 :32; Admin Dose 30 UNIT; Start 01/03/17 at 08:00 Diagnostic Test (Pha) (Accu-Chek) 1 ea 02 XX Last administered on 01/03/17 02: 07; Admin Dose 1 EA; Start 01/03/17 at 02:00 Miscellaneous Information 1 ea NOTE XX ; Start 01/02/17 at 17:00 Glucose (Glutose) 15 gm Q15M PRN PO DECREASED GLUCOSE; Start 01/02/17 at 17:00 Glucose (Glutose) 22.5 gm Q15M PRN PO DECREASED GLUCOSE; Start 01/02/17 at 17: 00 Dextrose (D50w Syringe) 25 ml Q15M PRN IV DECREASED GLUCOSE; Start 01/02/17 at 17:00 Dextrose (D50w Syringe) 50 ml Q15M PRN IV DECREASED GLUCOSE; Start 01/02/17 at 17:00 Glucagon (Glucagen) 1 mg Q15M PRN IM DECREASED GLUCOSE; Start 01/02/17 at 17:00 Glucose 15 gm 15 gm Q15M PRN BUCCAL DECREASED GLUCOSE; Start 01/02/17 at 17:00 Potassium Chloride/Lactated Ringer's (KCl/Lr) 1,010 ml @ 100 mls/hr Q10H6M IV Last administered on 01/03/17 15:10; Admin Dose 100 MLS/HR; Start 01/02/17 at 22:00 RACHELL CHAUHAN MD Jan 03, 2017 20:14
[2017-01-03] MEDS: KETOROLAC 30 MG INJ IV PRN (22:47)
[2017-01-04] MEDS: ALBUTEROL/IPRATROPIUM (NEB) 3 ML AMP HHN SCH ×4 (01:12→20:17)
[2017-01-04] MEDS: POTASSIUM CHLORIDE 20 MEQ in LACTATED RINGER'S 1,000 ML IV SCH ×2 (02:18→12:19)
[2017-01-04] MEDS: ACCU-CHEK XX SCH (02:21)
[2017-01-04] MEDS: HYDROCODONE/APAP (5/325) TAB PO PRN ×3 (04:22→21:26)
[2017-01-04 06:06] LABS: ADD SCAN DIFF NO
[2017-01-04 06:54] LABS: CALCIUM 8.5 mg/dl (8.4-10.2); CREATININE 0.76 mg/dl (0.44-1.00); POTASSIUM 4.3 mmol/L (3.5-5.1)
[2017-01-04 08:12] VITALS: BP 128/70; RESP 18
[2017-01-04] MEDS: metFORMIN 850 MG TAB PO SCH ×3 (08:55→18:15)
[2017-01-04] MEDS: ASPIRIN (EC) 81 MG TAB PO SCH (08:56)
[2017-01-04] MEDS: FAMOTIDINE 20 MG INJ IV SCH ×2 (08:56→20:47)
[2017-01-04] MEDS: GABAPENTIN 100 MG CAP PO SCH ×3 (08:56→20:47)
[2017-01-04] MEDS: KETOROLAC 30 MG INJ IV PRN (08:56)
[2017-01-04] MEDS: ATORVASTATIN 20 MG TAB PO SCH (08:56)
[2017-01-04] MEDS: LISINOPRIL 20 MG TAB PO SCH (08:57)
[2017-01-04] MEDS: INSULIN ASPART [NOVOLOG] 3 ML PEN SC SCH ×7 (09:00→21:00)
[2017-01-04] MEDS: INSULIN GLARGINE [LANtus] 3 ML PEN SC SCH (09:03)
[2017-01-04 13:04] LABS: BASOPHILS % 0.3 % (0.0-2.0); EOSINOPHILS # 0.1 10^3/ul (0.0-0.5); EOSINOPHILS % 0.9 % (0.0-7.0); HEMATOCRIT 39.7 % (37.0-47.0); HEMOGLOBIN 11.9 g/dl (12.0-16.0); LYMPHOCYTES # 1.7 10^3/ul (0.8-2.9); MEAN CORPUSCULAR HEMOGLOBIN 31.8 pg (29.0-33.0); MEAN CORPUSCULAR VOLUME 106.1 fl (82.0-101.0); MEAN PLATELET VOLUME 12.2 fl (7.4-10.4); MONOCYTE # 0.5 10^3/ul (0.3-0.9); MONOCYTES % 5.3 % (0.0-11.0); NEUTROPHIL # 7.6 10^3/ul (1.6-7.5); NEUTROPHILS % 76.1 % (39.0-77.0); PLATELET COUNT 181 10^3/UL (140-415); RED BLOOD COUNT 3.74 10^6/ul (4.20-5.40); RED CELL DISTRIBUTION WIDTH 13.4 % (11.5-14.5); WHITE BLOOD COUNT 9.9 10^3/ul (4.8-10.8)
--- NOTE | 2017-01-04 19:00 | PN ---
Date/Time of Note Date/Time of Note DATE: 01/04/17 TIME: 18:57 Assessment/Plan VTE Prophylaxis VTE Prophylaxis Intervention: SCD's Lines/Catheters IV Catheter Type (from Nrs): Peripheral IV Urinary Cath still in place: Yes Reason Cath still needed: urinary retention Assessment/Plan Assessment/Plan 1. 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 Status post laparoscopic hysterectomy and node dissection. Continue bladder training. 2. Diabetes. Continue metformin Lantus and NovoLog. 3. Hypertension. Continue lisinopril. 4. Obesity. 5. Dyslipidemia. Continue statin. Further recommendations based on clinical course. Plan of care discussed with Dr. Meredith. Subjective 24 Hr Interval Summary Free Text/Dictation Patient tolerates regular diet well, passing gas, had bowel movement, was able to ambulate in the hallway, Garcia catheter, currently undergoing bladder training. Exam/Review of Systems Vital Signs Vitals Vital Signs Date Time Temp Pulse Resp B/P Pulse Ox O2 Delivery O2 Flow Rate FiO2 01/04/17 13:20 94 2.0 01/04/17 13:20 101 20 Nasal Cannula 01/04/17 08:12 98.2 128/70 Intake and Output 01/03/17 01/03/17 01/04/17 15:00 23:00 07:00 Intake Total 2140 ml 1280 ml Output Total 500 ml 900 ml Balance 1640 ml 380 ml Exam Constitutional: alert, oriented Results Result Diagram: 01/04/17 0417 01/04/17 0417 Results 24 hrs Laboratory Tests Test 01/03/17 21:00 01/04/17 02:14 01/04/17 04:17 01/04/17 08:04 Bedside Glucose 193 182 233 H White Blood Count 9.9 Red Blood Count 3.74 L Hemoglobin 11.9 L Hematocrit 39.7 Mean Corpuscular Volume 106.1 H Mean Corpuscular Hemoglobin 31.8 Mean Corpuscular Hemoglobin Concent 30.0 L Red Cell Distribution Width 13.4 Platelet Count 181 Mean Platelet Volume 12.2 H Neutrophils % 76.1 Lymphocytes % 17.0 Monocytes % 5.3 Eosinophils % 0.9 Basophils % 0.3 Nucleated Red Blood Cells % 0.0 Neutrophils # 7.6 H Lymphocytes # 1.7 Monocytes # 0.5 Eosinophils # 0.1 Basophils # 0.0 Nucleated Red Blood Cells # 0.0 Sodium Level 136 Potassium Level 4.3 Chloride Level 102 Carbon Dioxide Level 30 Anion Gap 8 Blood Urea Nitrogen 10 Creatinine 0.76 Glucose Level 223 H Calcium Level 8.5 Test 01/04/17 12:23 01/04/17 16:59 Bedside Glucose 219 188 Medications Medications Current Medications Diphenhydramine HCl (Benadryl) 25 mg Q4H PRN IV PRURITUS; Start 01/02/17 at 14: 00 Nalbuphine HCl (Nubain) 10 mg Q4H PRN IV PRURITUS; Start 01/02/17 at 14:00 Naloxone HCl (Narcan) 0.2 mg Q2M PRN IV FOR RESP RATE 8 OR LESS; Start at 14:00 Morphine Sulfate (morphine) 2 mg Q2H PRN IV PAIN LEVEL 6-10 Last administered on 01/03/17 18:23; Admin Dose 2 MG; Start 01/02/17 at 13:30 Acetaminophen/ Hydrocodone Bitart ([place] (5/325)) 1 tab Q6H PRN PO PAIN LEVEL 6 -10 Last administered on 01/04/17 12:30; Admin Dose 1 TAB; Start 01/02/17 at 13 :30 Ketorolac Tromethamine (Toradol) 30 mg Q6H PRN IV PAIN Last administered on 08:56; Admin Dose 30 MG; Start 01/02/17 at 13:30; Stop 01/05/17 at 13:29 Ondansetron HCl (Zofran Inj) 4 mg Q6H PRN IV NAUSEA AND/OR VOMITING; Start at 13:30 Famotidine (Pepcid Iv) 20 mg Q12 IV Last administered on 01/04/17 08:56; Admin Dose 20 MG; Start 01/02/17 at 21:00 Aspirin (Halfprin) 81 mg DAILY PO Last administered on 01/04/17 08:56; Admin Dose 81 MG; Start 01/03/17 at 09:00 Atorvastatin Calcium (Lipitor) 20 mg DAILY PO Last administered on 01/04/17 08 :56; Admin Dose 20 MG; Start 01/03/17 at 09:00 Gabapentin (Neurontin) 100 mg TID PO Last administered on 01/04/17 12:51; Admin Dose 100 MG; Start 01/02/17 at 21:00 Lisinopril (Zestril) 20 mg DAILY PO Last administered on 01/04/17 08:57; Admin Dose 20 MG; Start 01/03/17 at 09:00 Insulin Glargine (Lantus) 30 unit DAILY@08 SC Last administered on 01/04/17 09 :03; Admin Dose 30 UNIT; Start 01/03/17 at 08:00 Diagnostic Test (Pha) (Accu-Chek) 1 ea 02 XX Last administered on 01/04/17 02: 21; Admin Dose 1 EA; Start 01/03/17 at 02:00 Miscellaneous Information 1 ea NOTE XX ; Start 01/02/17 at 17:00 Glucose (Glutose) 15 gm Q15M PRN PO DECREASED GLUCOSE; Start 01/02/17 at 17:00 Glucose (Glutose) 22.5 gm Q15M PRN PO DECREASED GLUCOSE; Start 01/02/17 at 17: 00 Dextrose (D50w Syringe) 25 ml Q15M PRN IV DECREASED GLUCOSE; Start 01/02/17 at 17:00 Dextrose (D50w Syringe) 50 ml Q15M PRN IV DECREASED GLUCOSE; Start 01/02/17 at 17:00 Glucagon (Glucagen) 1 mg Q15M PRN IM DECREASED GLUCOSE; Start 01/02/17 at 17:00 Glucose 15 gm 15 gm Q15M PRN BUCCAL DECREASED GLUCOSE; Start 01/02/17 at 17:00 Potassium Chloride/Lactated Ringer's (KCl/Lr) 1,010 ml @ 50 mls/hr [id number] IV Last administered on 01/04/17 02:18; Admin Dose 50 MLS/HR; Start 01/02/17 at 22 :00 KATHERYN JENSEN Jan 04, 2017 18:59
[2017-01-04 20:16] VITALS: BP 131/76; RESP 20
[2017-01-04] MEDS ORDERED: IBUP400T22 PO (21:13)
== END 2017-01-04 22:05 | disposition home or self-care (01) | DRG 734 ==
LOC: REC 05:34 → MS1 18:12
PROC: 07TC4ZZ Resection of Pelvis Lymphatic, Percutaneous Endoscopic Approach (ICD-10-PCS; 2017-01-02)
PROC: 0UT2FZZ Resection of Bilateral Ovaries, Via Natural or Artificial Opening With Percutaneous Endoscopic Assistance (ICD-10-PCS; 2017-01-02)
PROC: 0UT7FZZ Resection of Bilateral Fallopian Tubes, Via Natural or Artificial Opening With Percutaneous Endoscopic Assistance (ICD-10-PCS; 2017-01-02)
PROC: 07BC4ZZ Excision of Pelvis Lymphatic, Percutaneous Endoscopic Approach (ICD-10-PCS; 2017-01-02)
PROC: 0TS64ZZ Reposition Right Ureter, Percutaneous Endoscopic Approach (ICD-10-PCS; 2017-01-02)
PROC: 0UT9FZZ Resection of Uterus, Via Natural or Artificial Opening With Percutaneous Endoscopic Assistance (ICD-10-PCS; principal; 2017-01-02 07:30)
DX: D06.0 Carcinoma in situ of endocervix (principal); Z68.42 Body mass index [BMI] 45.0-49.9, adult; E66.01 Morbid (severe) obesity due to excess calories; F17.210 Nicotine dependence, cigarettes, uncomplicated; E11.9 Type 2 diabetes mellitus without complications; E78.5 Hyperlipidemia, unspecified; I10 Essential (primary) hypertension; E03.9 Hypothyroidism, unspecified; Z79.4 Long term (current) use of insulin
CPT/HCPCS: 80048; 82962; 85025; 85610; 86850; 86900; 86901; 86920; 88300; 88304; 88305; 88309; 94640; 94664; J0131; J0330; J0360; J0690; J1170; J1644; J1815; J1885; J2250; J2270; J2274; J2370; J2405; J2710; J2765; J2795; J3010; J3480; J7120